=== PATIENT | male | born 1985 | race Caucasian/White ===

== ENCOUNTER 2016-08-17 18:49 | Emergency (ER) | payer SELFPAY ==
[~2016-08-17] VITALS: Ht 175.3 cm; Wt 85.8 kg
[~2016-08-17 18:49] MED LIST: CLINDAMYCIN HC300 MG PO; ERYTHROMYC1 APPLICAT LEFT EYE; FLEXERIL10 MG PO; HYCODAN SYRUP480 ML PO; HYDROCODON-ACE1 EAC7 PO; LEVAQUIN750 MG PO; NAPROSYN500 MG PO; NOHOMEMEDS; NORCO 5/3251 TABLET PO; PREDNISONE20 MG PO; PROAIR HFA8.5 GM IH; ULTRAM50 MG PO
[2016-08-17] MEDS ORDERED: AMOXICILLIN875 MG PO (20:44)
[2016-08-17] MEDS ORDERED: OXYCODONE H5 MG/5 ML PO (20:44)
[2016-08-17 21:28] VITALS: BP 144/96
== END 2016-08-17 21:29 | disposition home or self-care (01) ==
LOC: EME 18:49
DX: J02.0 Streptococcal pharyngitis (principal); F17.200 Nicotine dependence, unspecified, uncomplicated
CPT/HCPCS: 87651 90; 99281; 99284; J1100

== ENCOUNTER 2017-01-07 00:38 | Emergency (ER) | payer SELFPAY ==
[~2017-01-07] VITALS: Ht 175.3 cm; Wt 89.9 kg
[~2017-01-07 00:38] MED LIST changes: +AMOXICILLIN875 MG PO; +OXYCODONE H5 MG/5 ML PO
[2017-01-07] MEDS ORDERED: FLEXERIL5 MG PO (03:29)
[2017-01-07] MEDS ORDERED: PREDNISONE10 MG PO (03:29)
[2017-01-07] MEDS ORDERED: PERCOCET 5/31 TABLET PO (03:29)
[2017-01-07 04:15] VITALS: BP 132/88
== END 2017-01-07 04:17 | disposition home or self-care (01) ==
LOC: EME 00:38
DX: S33.5XXA Sprain of ligaments of lumbar spine, initial encounter (principal); X50.0XXA Overexertion from strenuous movement or load, initial encounter
CPT/HCPCS: 72100; 99281; 99283; J1100

== ENCOUNTER 2017-05-12 22:03 | Emergency (ER) | payer SELFPAY ==
[~2017-05-12] VITALS: Ht 175.3 cm; Wt 86.3 kg
[~2017-05-12 22:03] MED LIST changes: +FLEXERIL5 MG PO; +PERCOCET 5/31 TABLET PO; +PREDNISONE10 MG PO
[2017-05-12] MEDS ORDERED: BACTRIM,SEPT1 TABLET PO (23:12)
[2017-05-13] MEDS ORDERED: BACTRIM,SEPT1 TABLET PO (00:38)
[2017-05-13 00:40] VITALS: BP 145/79
== END 2017-05-13 00:42 | disposition home or self-care (01) ==
LOC: EME 22:03
DX: S80.262A Insect bite (nonvenomous), left knee, initial encounter (principal); L08.9 Local infection of the skin and subcutaneous tissue, unspecified; W57.XXXA Bitten or stung by nonvenomous insect and other nonvenomous arthropods, initial encounter
CPT/HCPCS: 99281; 99284; J0696; J7050